=== PATIENT | female | born 1955 | race Caucasian/White ===

== ENCOUNTER 2017-11-08 10:41 | Outpatient (CLI) | payer BC | END 2017-11-08 10:42 | disposition home or self-care (01) | LOC: BICMAMMO 10:41 | PROVIDERS: ATTEND Family Medicine | DX: Z12.31 Encounter for screening mammogram for malignant neoplasm of breast (principal); N63.10 Unspecified lump in the right breast, unspecified quadrant; N64.89 Other specified disorders of breast | CPT/HCPCS: 77063; 77067 ==

== ENCOUNTER 2017-11-27 08:51 | Outpatient (CLI) | payer BC | END 2017-11-27 08:52 | disposition home or self-care (01) | LOC: BICMAMMO 08:51 | PROVIDERS: ATTEND Family Medicine | DX: N63.10 Unspecified lump in the right breast, unspecified quadrant (principal); N64.89 Other specified disorders of breast | CPT/HCPCS: 77066; G0279 ==

== ENCOUNTER 2018-01-25 12:46 | Outpatient (CLI) | payer BC ==
[2018-01-25 13:37] LABS: Estimated GFR-MDRD - POC Greater than 90
[2018-01-25 13:37] LABS: Estimated GFR-MDRD - POC Greater than 90
[2018-01-25] MEDS ORDERED: Gadobenate Dimeglumine 529 MG/1 ML (20ML VIAL) ONE (14:50)
== END 2018-01-25 12:47 | disposition home or self-care (01) ==
LOC: BICMRI 12:46
PROVIDERS: ATTEND Family Medicine
DX: R92.8 Other abnormal and inconclusive findings on diagnostic imaging of breast (principal)
CPT/HCPCS: 82565; A9579; C8908

== ENCOUNTER 2018-07-18 14:15 | Outpatient (CLI) | payer BC ==
--- NOTE | 2018-07-18 15:35 | RAD ---
LEFT WRIST TWO VIEWS: 07/18/18 HISTORY: Left wrist pain. FINDINGS: Scaphoid waist is incompletely evaluated due to rotation of the frontal view and lack of a third and fourth view. No displaced fractures are apparent. Distal ulna is intact. This is where patient report edly has pain. Small subcortical cyst at the base of the lunate. No aggressive osseous erosions. IMPRESSION: Mild degenerative changes left wrist. No acute osseous abnormalities are demonstrated. POS: [facility]
== END 2018-07-18 14:16 | disposition home or self-care (01) ==
LOC: BICRAD 14:15
PROVIDERS: ATTEND Family Medicine
DX: M25.539 Pain in unspecified wrist (principal); M19.032 Primary osteoarthritis, left wrist

== ENCOUNTER 2018-12-30 08:37 | Outpatient (CLI) | payer BC ==
--- NOTE | 2018-12-30 10:16 | MMO ---
Bilateral MAMMO Bilat Diag [facility]. CLINICAL HISTORY: Patient is 63 years old and is seen for diagnostic exam. The patient has no family history of breast cancer. The patient has no personal history of cancer. The patient has a history of bilateral Excisional Biopsy in 1994 - benign. VIEWS: The views performed were: bilateral craniocaudal with tomosynthesis; bilateral mediolateral oblique with tomosynthesis; bilateral mediolateral with tomosynthesis; and left mediolateral oblique. FILMS COMPARED: The present examination has been compared to prior imaging studies performed at [facility] on 09/01/2016, 11/08/2017, 11/27/2017 and 12/30/2018. MAMMOGRAM FINDINGS: There are scattered fibroglandular densities. The focal asymmetry/probable architechtural distortion best seen on CC view at 1:00 position and nodule on US are again seen. This was suspicious on the previous MRI and should be biopsied. In the right breast, there are no suspicious masses, calcifications or areas of architectural distortion. IMPRESSION: FINDING IN THE LEFT BREAST IS SUSPICIOUS. BIOPSY IS RECOMMENDED. THE RESULTS OF THIS EXAM WERE SENT TO THE PATIENT. ACR BI-RADS Category 4 - Suspicious abnormality - biopsy should be considered MAMMOGRAPHY NOTE: 1. A negative mammogram report should not delay a biopsy if a dominant of clinically suspicious mass is present. 2. Approximately 10% to 15% of breast cancers are not detected by mammography. 3. Adenosis and dense breasts may obscure an underlying neoplasm. Reported by: EUFEMIA WARNER MD Electonically Signed: [id number]
--- NOTE | 2018-12-30 11:40 | BD ---
DEXA BONE MINERAL STUDY: HISTORY: Postmenopausal. FINDINGS: Lumbar Spine: BMD (g/cm2) L1 0.990 T-Score: +0.0 L2 1.025 T-Score: +0.0 L3 1.050 T-Score: -0.3 L4 1.129 T-Score: +0.6 L1-L4 1.056 T-Score: +0.1 Femoral Neck: 0.854 T-Score: +0.0 Total Femur: 1.152 T-Score: +1.7 Impression: Normal bone mineral density of the lumbar spine and left femoral neck. POS: [facility]
--- NOTE | 2018-12-30 12:44 | ULT ---
LEFT BREAST ULTRASOUND: HISTORY: Suspicious left breast abnormality on previous imaging. FINDINGS: Comparison is made with the ultrasound of 10/27/2017. Correlation is made with mammogram of the same date. FINDINGS: Sonographic evaluation of the 1 o'clock position of the left breast demonstrates a 1 x 0.6 x 0.4 cm s olid-appearing mass in the region of mammographic abnormality. This was suspicious on MRI of 01/26/20 18 and should be evaluated by biopsy. IMPRESSION: BIRADS category 4 - suspicious abnormality. Biopsy is recommended. CODE T POS: OFF
== END 2018-12-30 08:38 | disposition home or self-care (01) ==
LOC: BICMAMMO 08:37
PROVIDERS: ATTEND Physician Assistant
DX: Z13.820 Encounter for screening for osteoporosis (principal); R92.8 Other abnormal and inconclusive findings on diagnostic imaging of breast; Z78.0 Asymptomatic menopausal state; Z91.89 Other specified personal risk factors, not elsewhere classified
CPT/HCPCS: 77066; 77080; G0279

== ENCOUNTER 2021-04-04 10:10 | Outpatient (CLI) | payer BC, MEDICARE | END 2021-04-04 10:11 | disposition home or self-care (01) | LOC: BICMAMMO 10:10 | PROVIDERS: ATTEND Internal Medicine Hematology & Oncology | DX: Z13.820 Encounter for screening for osteoporosis (principal); Z78.0 Asymptomatic menopausal state | CPT/HCPCS: 77080 ==

== ENCOUNTER 2021-05-18 10:31 | Outpatient (CLI) | payer BC, MEDICARE | END 2021-05-18 10:32 | disposition home or self-care (01) | LOC: BICMAMMO 10:31 | PROVIDERS: ATTEND Surgery | DX: C50.912 Malignant neoplasm of unspecified site of left female breast (principal) | CPT/HCPCS: 77066; G0279 ==

== ENCOUNTER 2022-06-27 10:14 | Outpatient (CLI) | payer BC, MEDICARE | END 2022-06-27 10:15 | disposition home or self-care (01) | LOC: BICMAMMO 10:14 | PROVIDERS: ATTEND Nurse Practitioner Family | DX: C50.912 Malignant neoplasm of unspecified site of left female breast (principal); R92.1 Mammographic calcification found on diagnostic imaging of breast; Z98.890 Other specified postprocedural states; Z90.12 Acquired absence of left breast and nipple; Z86.018 Personal history of other benign neoplasm; Z91.89 Other specified personal risk factors, not elsewhere classified | CPT/HCPCS: 77066; G0279 ==

== ENCOUNTER 2023-02-20 08:29 | Outpatient (CLI) | payer BC, MEDICARE | END 2023-02-20 08:30 | disposition home or self-care (01) | LOC: BICMAMMO 08:29 | PROVIDERS: ATTEND Internal Medicine Hematology & Oncology | DX: Z13.820 Encounter for screening for osteoporosis (principal); T38.6X5A Adverse effect of antigonadotrophins, antiestrogens, antiandrogens, not elsewhere classified, initial encounter | CPT/HCPCS: 77080 ==

== ENCOUNTER 2024-06-30 08:47 | Outpatient (CLI) | payer BC, MEDICARE | END 2024-06-30 08:48 | disposition home or self-care (01) | LOC: BICMAMMO 08:47 | PROVIDERS: ATTEND Radiology Radiation Oncology | DX: Z08 Encounter for follow-up examination after completed treatment for malignant neoplasm (principal); Z85.3 Personal history of malignant neoplasm of breast | CPT/HCPCS: 77066; G0279 ==